=== PATIENT | male | born 1940 | race Native Hawaiian/Other Pacific Islander ===

== ENCOUNTER 2018-10-15 15:36 | Outpatient (CLI) | payer MEDICARE | END 2018-10-15 15:37 | disposition home or self-care (01) | LOC: RAD 15:36 ==

== ENCOUNTER 2018-11-22 15:10 | Outpatient (CLI) | payer MEDICARE | END 2018-11-22 15:11 | disposition home or self-care (01) | LOC: RAD 15:10 ==

== ENCOUNTER 2018-12-02 07:15 | Outpatient (CLI) | payer MEDICARE | END 2018-12-02 07:16 | disposition home or self-care (01) | LOC: LAB 07:15 ==